=== PATIENT | male | born 1935 | race Caucasian/White ===

== ENCOUNTER 2017-08-17 13:49 | Inpatient (IN) | payer MEDICARE, OTHER ==
[~2017-08-17] VITALS: Ht 172.7 cm; Wt 75.9 kg
[~2017-08-17 13:49] MED LIST: BISO1TAB12 PO; CEFD300C37 PO; DILT60TA27 PO; DILT60TA30 PO; DOXA4TAB3 PO; FLUT1AER PO; HYDR-3240 PO; LORA10TA62 PO; LOVA20TA2 PO; METO25TA35 PO; METR500T PO; POTA20TA6 PO; RIVA20TA PO; VIT1TABL32 PO
[2017-08-17] MEDS ORDERED: NALOXONE 0.4 MG/ML, 1ML IVPush ONE (14:00)
[2017-08-17 14:07] LABS: HEMATOCRIT 48.1 % (39.2-51.8); HEMOGLOBIN 16.2 g/dL (13.7-18.0); WHITE BLOOD COUNT 8.5 x10^3/uL (3.4-10)
[2017-08-17] MEDS ORDERED: DILTIAZEM 5 MG/ML, 5ML ONE ×2 (14:18→17:13)
[2017-08-17] MEDS ORDERED: PLEASE ENTER HEIGHT AND WEIGHT MC SCH (14:30)
[2017-08-17] MEDS ORDERED: DILTIAZEM 5 MG/ML, 5ML IV ONE (14:30)
[2017-08-17] MEDS ORDERED: OMNIPAQUE 350 MG/ML, 150 ML BOTTLE ONE (14:56)
[2017-08-17] MEDS ORDERED: OMNIPAQUE 350 MG/ML, 100ML BOTTLE ONE (15:13)
[2017-08-17] MEDS ORDERED: SODIUM CHLORIDE FLUSH 10ML SYR IVF PRN (15:30)
[2017-08-17] MEDS ORDERED: METOPROLOL 1 MG/ML, 5ML ONE ×3 (15:42→16:49)
[2017-08-17] MEDS: METOPROLOL 1 MG/ML, 5ML IVPush PRN ×2 (15:43→17:00)
[2017-08-17] MEDS ORDERED: METOPROLOL 1 MG/ML, 5ML IVPush STA (16:10)
[2017-08-17] MEDS ORDERED: LORazepam 2 MG/ML, 1ML ONE (16:36)
[2017-08-17] MEDS ORDERED: LORazepam 2 MG/ML, 1ML IVPush ONE ×2 (17:00→17:30)
[2017-08-17] MEDS ORDERED: ENALAPRILAT 1.25 MG/ML, 2ML IVPush PRN (17:00)
[2017-08-17] MEDS ORDERED: ENALAPRILAT 1.25 MG/ML, 2ML ONE (17:18)
[2017-08-17] MEDS ORDERED: ZIPRASIDONE 20 MG INJ IM ONE ×2 (17:19→17:30)
[2017-08-17] MEDS ORDERED: HYDROmorphone 2 MG/ML, 1ML ONE (18:52)
[2017-08-17] MEDS ORDERED: morphine SULFATE/PF 0.5 MG/ML, 10ML IV PRN (19:00)
[2017-08-17] MEDS ORDERED: DILTIAZEM 125 MG in SODIUM CHLORIDE 0.9% 100 ML IV PRN (19:00)
[2017-08-17] MEDS ORDERED: HYDROmorphone 1 MG/ML, 1ML IVPush PRN (19:00)
[2017-08-17] MEDS ORDERED: NALOXONE 0.4 MG/ML, 1ML ONE (19:44)
[2017-08-17 20:26] VITALS: BP 171/131
[2017-08-17 22:11] LABS: HEMATOCRIT 50.6 % (39.2-51.8); HEMOGLOBIN 16.7 g/dL (13.7-18.0); WHITE BLOOD COUNT 9.6 x10^3/uL (3.4-10)
[2017-08-17 22:22] LABS: BLOOD UREA NITROGEN 14 mg/dL (7-18)
[2017-08-17] MEDS: POTASSIUM CHLORIDE 20 MEQ TAB.ER.PRT PO SCH (22:49)
[2017-08-17 23:30] VITALS: BP 54/37
[2017-08-17 23:45] VITALS: BP 69/47
[2017-08-18] MEDS ORDERED: SODIUM CHLORIDE 0.9%, 500ML IVBOLUS ONE
[2017-08-18 00:35] VITALS: BP 121/64
[2017-08-18 00:48] VITALS: BP 125/61
[2017-08-18 05:42] LABS: HEMATOCRIT 45.5 % (39.2-51.8); HEMOGLOBIN 15.4 g/dL (13.7-18.0); WHITE BLOOD COUNT 11.2 x10^3/uL (3.4-10)
[2017-08-18] MEDS: LORazepam 2 MG/ML, 1ML IVPush PRN ×3 (06:07→21:19)
[2017-08-18 06:19] LABS: ASPARTATE AMINO TRANSFERASE 22 U/L (15-37); BLOOD UREA NITROGEN 17 mg/dL (7-18)
[2017-08-18] MEDS: MORPHINE SULFATE 4 MG/ML, 1ML IV PRN ×2 (06:24→11:11)
[2017-08-18 07:00] VITALS: BP 95/60
[2017-08-18] MEDS ORDERED: LORazepam 2 MG/ML, 1ML IVPush ONE (08:50)
[2017-08-18] MEDS ORDERED: LORazepam 2 MG/ML, 1ML IVPush PRN (09:00)
[2017-08-18] MEDS: POTASSIUM CHLORIDE 20 MEQ TAB.ER.PRT PO SCH ×3 (09:00→21:00)
[2017-08-18] MEDS ORDERED: RIVAROXABAN 20 MG TABLET PO SCH (09:00)
[2017-08-18] MEDS ORDERED: DIGOXIN 0.25 MG/ML, 2ML IVPush ONE ×2 (10:00→12:00)
[2017-08-18] MEDS ORDERED: GADOBUTROL 7.5 MMOL/7.5 ML VIAL ONE (11:59)
[2017-08-18] MEDS: LEVETIRACETAM 500 MG in SODIUM CHLORIDE 0.9% 100 ML IV SCH ×2 (13:07→22:19)
[2017-08-18 13:09] VITALS: BP 168/94
[2017-08-18 15:51] LABS: DAU SCREEN DISCLAIMER
[2017-08-18] MEDS ORDERED: DIGOXIN 0.25 MG/ML, 2ML ONE (16:15)
[2017-08-18] MEDS: LOVASTATIN 20 MG TABLET PO SCH (21:00)
[2017-08-18] MEDS ORDERED: hydrALAzine 20 MG/ML, 1ML ONE (22:43)
[2017-08-18 22:45] VITALS: BP 201/108
[2017-08-18] MEDS: hydrALAzine 20 MG/ML, 1ML IV PRN (22:46)
[2017-08-19] MEDS: MORPHINE SULFATE 4 MG/ML, 1ML IV PRN (00:47)
[2017-08-19 02:27] VITALS: BP 111/64
[2017-08-19] MEDS: LORazepam 2 MG/ML, 1ML IVPush PRN (03:10)
[2017-08-19 05:14] LABS: HEMATOCRIT 49.4 % (39.2-51.8); HEMOGLOBIN 16.3 g/dL (13.7-18.0); WHITE BLOOD COUNT 16.4 x10^3/uL (3.4-10)
[2017-08-19 05:25] LABS: BLOOD UREA NITROGEN 23 mg/dL (7-18)
[2017-08-19] MEDS ORDERED: ASPIRIN 325 MG TABLET PO SCH (06:00)
[2017-08-19 07:00] VITALS: BP 183/82
[2017-08-19] MEDS ORDERED: SODIUM CHLORIDE 0.9% 100 ML IV SCH (07:00)
[2017-08-19] MEDS ORDERED: DIGOXIN 0.25 MG/ML, 2ML IVPush SCH (09:00)
[2017-08-19] MEDS: POTASSIUM CHLORIDE 20 MEQ TAB.ER.PRT PO SCH ×3 (09:04→22:17)
[2017-08-19] MEDS: hydrALAzine 20 MG/ML, 1ML IV PRN (09:16)
[2017-08-19] MEDS: LEVETIRACETAM 500 MG in SODIUM CHLORIDE 0.9% 100 ML IV SCH ×2 (09:17→22:15)
[2017-08-19 09:55] LABS: BLOOD UREA NITROGEN 22 mg/dL (7-18)
[2017-08-19 09:58] LABS: ASPARTATE AMINO TRANSFERASE 35 U/L (15-37)
[2017-08-19] MEDS: NS + 20MEQ KCL 1,000 ML IV SCH (10:15)
[2017-08-19] MEDS ORDERED: DILTIAZEM 30 MG TABLET PO SCH (11:30)
[2017-08-19] MEDS ORDERED: VANCOMYCIN PER PHARMACY MC PRN (14:00)
[2017-08-19] MEDS ORDERED: PHARMACOKINETIC MONITORING MC PRN (14:30)
[2017-08-19] MEDS ORDERED: PHARMACOKINETIC CONSULTATION MC ONE (14:30)
[2017-08-19] MEDS: PIPERACILLIN/TAZO/PMX 3.375GM 50 ML IV SCH ×2 (14:49→20:04)
[2017-08-19 14:55] VITALS: BP 175/81
[2017-08-19] MEDS: VANCOMYCIN 1,500 MG in SODIUM CHLORIDE 0.9% 250 ML IV SCH (15:29)
[2017-08-19] MEDS: ENALAPRILAT 1.25 MG/ML, 2ML IV SCH ×2 (17:32→22:16)
[2017-08-19] MEDS ORDERED: hydrALAzine 20 MG/ML, 1ML IV PRN (19:00)
[2017-08-19 19:03] VITALS: BP 177/77
[2017-08-19] MEDS: LOVASTATIN 20 MG TABLET PO SCH (21:00)
[2017-08-20] VITALS (8 sets, daily range): BP systolic 138–189; BP diastolic 66–92
[2017-08-20] MEDS: PIPERACILLIN/TAZO 3.375 GM in SODIUM CHLORIDE 0.9% 50 ML IV SCH ×4 (02:09→19:48)
[2017-08-20] MEDS: NS + 20MEQ KCL 1,000 ML IV SCH ×2 (02:46→14:56)
[2017-08-20 05:35] LABS: BLOOD UREA NITROGEN 34 mg/dL (7-18)
[2017-08-20] MEDS ORDERED: VANCOMYCIN PER PHARMACY MC PRN (07:00)
[2017-08-20 07:55] LABS: HEMATOCRIT 44.5 % (39.2-51.8); HEMOGLOBIN 14.9 g/dL (13.7-18.0)
[2017-08-20] MEDS ORDERED: DIGOXIN 0.25 MG/ML, 2ML ONE (07:56)
[2017-08-20] MEDS: POTASSIUM CHLORIDE 20 MEQ TAB.ER.PRT PO SCH (08:02)
[2017-08-20] MEDS: ENALAPRILAT 1.25 MG/ML, 2ML IV SCH ×2 (08:10→21:48)
[2017-08-20] MEDS: DIGOXIN 0.25 MG/ML, 2ML IVPush SCH (08:10)
[2017-08-20] MEDS: LEVETIRACETAM 500 MG in SODIUM CHLORIDE 0.9% 100 ML IV SCH ×2 (08:50→21:47)
[2017-08-20] MEDS: hydrALAzine 20 MG/ML, 1ML IV PRN ×2 (12:46→17:40)
[2017-08-20] MEDS: DILTIAZEM 30 MG TABLET PO SCH ×3 (12:47→21:47)
[2017-08-20] MEDS ORDERED: RIVAROXABAN 20 MG TABLET PO SCH (17:00)
[2017-08-20] MEDS: METOPROLOL TARTRATE 25 MG TABLET PO SCH (17:40)
[2017-08-20] MEDS: RIVAROXABAN 15 MG TABLET PO SCH (17:40)
[2017-08-20] MEDS: LOVASTATIN 20 MG TABLET PO SCH (21:00)
[2017-08-21] VITALS (12 sets, daily range): BP systolic 129–165; BP diastolic 54–94
[2017-08-21 00:06] LABS: IS PT STATUS REG ER OR PRE ER? NO
[2017-08-21] MEDS: hydrALAzine 20 MG/ML, 1ML IV PRN ×3 (00:29→16:39)
[2017-08-21] MEDS: PIPERACILLIN/TAZO 3.375 GM in SODIUM CHLORIDE 0.9% 50 ML IV SCH ×4 (02:16→21:24)
[2017-08-21] MEDS: VANCOMYCIN 1,500 MG in SODIUM CHLORIDE 0.9% 250 ML IV SCH (03:04)
[2017-08-21] MEDS: NS + 20MEQ KCL 1,000 ML IV SCH ×2 (05:22→15:53)
[2017-08-21] MEDS: METOPROLOL TARTRATE 25 MG TABLET PO SCH ×2 (05:24→19:08)
[2017-08-21 05:49] LABS: IS PT STATUS REG ER OR PRE ER? NO
[2017-08-21] MEDS: DIGOXIN 0.25 MG/ML, 2ML IVPush SCH (09:39)
[2017-08-21] MEDS: DILTIAZEM 30 MG TABLET PO SCH ×3 (09:39→21:26)
[2017-08-21] MEDS: ENALAPRILAT 1.25 MG/ML, 2ML IV SCH ×2 (09:39→21:26)
[2017-08-21] MEDS: LEVETIRACETAM 500 MG in SODIUM CHLORIDE 0.9% 100 ML IV SCH ×2 (11:38→22:52)
[2017-08-21] MEDS: RIVAROXABAN 15 MG TABLET PO SCH (16:39)
[2017-08-21] MEDS: LOVASTATIN 20 MG TABLET PO SCH (21:25)
[2017-08-22] VITALS (9 sets, daily range): BP systolic 95–171; BP diastolic 56–82
[2017-08-22] MEDS: hydrALAzine 20 MG/ML, 1ML IV PRN (01:30)
[2017-08-22] MEDS: PIPERACILLIN/TAZO 3.375 GM in SODIUM CHLORIDE 0.9% 50 ML IV SCH ×4 (02:00→15:48)
[2017-08-22] MEDS: METOPROLOL TARTRATE 25 MG TABLET PO SCH ×2 (06:26→17:22)
[2017-08-22] MEDS: NS + 20MEQ KCL 1,000 ML IV SCH (10:26)
[2017-08-22] MEDS: DILTIAZEM 30 MG TABLET PO SCH ×3 (10:26→21:50)
[2017-08-22] MEDS: DIGOXIN 0.25 MG/ML, 2ML IVPush SCH (10:27)
[2017-08-22] MEDS: ENALAPRILAT 1.25 MG/ML, 2ML IV SCH (10:30)
[2017-08-22] MEDS: LEVETIRACETAM 500 MG in SODIUM CHLORIDE 0.9% 100 ML IV SCH ×2 (11:44→22:02)
[2017-08-22] MEDS: VANCOMYCIN 1,500 MG in SODIUM CHLORIDE 0.9% 250 ML IV SCH (15:48)
[2017-08-22] MEDS ORDERED: RIVAROXABAN 20 MG TABLET PO SCH (16:30)
[2017-08-22] MEDS: RIVAROXABAN 20 MG TABLET PO SCH (17:22)
[2017-08-22] MEDS: AMPICILLIN 250 MG/5 ML PO SCH ×2 (19:13→21:51)
[2017-08-22] MEDS: LOVASTATIN 20 MG TABLET PO SCH (21:00)
[2017-08-23] VITALS: BP 121/70
[2017-08-23 04:00] VITALS: BP 155/75
[2017-08-23] MEDS: hydrALAzine 20 MG/ML, 1ML IV PRN (04:31)
[2017-08-23 04:45] VITALS: BP 127/56
[2017-08-23 06:14] LABS: BLOOD UREA NITROGEN 25 mg/dL (7-18)
[2017-08-23] MEDS: AMPICILLIN 250 MG/5 ML PO SCH ×3 (06:36→18:36)
[2017-08-23] MEDS: METOPROLOL TARTRATE 25 MG TABLET PO SCH ×2 (06:36→18:36)
[2017-08-23 07:40] VITALS: BP 133/69
[2017-08-23] MEDS ORDERED: MAGNESIUM SULFATE PMX 2GM/50ML 50 ML IV ONE (09:00)
[2017-08-23] MEDS: DILTIAZEM 30 MG TABLET PO SCH ×2 (09:00→16:00)
[2017-08-23] MEDS: DILTIAZEM 60 MG TABLET PO SCH ×2 (09:03→18:36)
[2017-08-23] MEDS: POTASSIUM CHLORIDE 20 MEQ TAB.ER.PRT PO SCH ×2 (09:04→18:36)
[2017-08-23] MEDS: LEVETIRACETAM 500 MG in SODIUM CHLORIDE 0.9% 100 ML IV SCH (09:05)
[2017-08-23] MEDS ORDERED: LEVE500T53 PO (11:37)
[2017-08-23] MEDS ORDERED: AMPICILLIN PO (11:37)
[2017-08-23] MEDS ORDERED: DILT120T4 PO (11:37)
[2017-08-23] MEDS ORDERED: TAMSULOSIN 0.4 MG CAP.ER.24H PO ONE (16:00)
[2017-08-23] MEDS: RIVAROXABAN 20 MG TABLET PO SCH (18:36)
[2017-08-23 19:50] VITALS: BP 120/50
[2017-08-23] MEDS ORDERED: LEVETIRACETAM 500 MG TABLET PO SCH (21:00)
[2017-08-27] MEDS ORDERED: TAMS-11 PO (08:04)
== END 2017-08-23 21:08 | disposition home health service (06) | DRG 100 ==
LOC: ED 14:44 → EDIP 15:29 → 5SO 20:02 → 4WST 08-18 17:00
PROVIDERS: ADMIT Hospitalist; ATTEND Hospitalist
PROC: 4B02XSZ Measurement of Cardiac Pacemaker, External Approach (ICD-10-PCS; principal; 2017-08-17)
PROC: 0T9B70Z Drainage of Bladder with Drainage Device, Via Natural or Artificial Opening (ICD-10-PCS; 2017-08-19)
DX: G40.209 Localization-related (focal) (partial) symptomatic epilepsy and epileptic syndromes with complex partial seizures, not intractable, without status epilepticus (principal); E43 Unspecified severe protein-calorie malnutrition; N17.9 Acute kidney failure, unspecified; I67.4 Hypertensive encephalopathy; R78.81 Bacteremia; D68.69 Other thrombophilia; I48.2 Chronic atrial fibrillation; B95.7 Other staphylococcus as the cause of diseases classified elsewhere; F11.20 Opioid dependence, uncomplicated; R17 Unspecified jaundice; N39.0 Urinary tract infection, site not specified; I49.5 Sick sinus syndrome; J43.9 Emphysema, unspecified; I71.4 Abdominal aortic aneurysm, without rupture; I73.9 Peripheral vascular disease, unspecified; N28.1 Cyst of kidney, acquired; I13.10 Hypertensive heart and chronic kidney disease without heart failure, with stage 1 through stage 4 chronic kidney disease, or unspecified chronic kidney disease; Z66 Do not resuscitate; I16.0 Hypertensive urgency; E78.5 Hyperlipidemia, unspecified; G89.29 Other chronic pain; M54.9 Dorsalgia, unspecified; E86.0 Dehydration; G31.9 Degenerative disease of nervous system, unspecified; G83.84 Todd's paralysis (postepileptic); H54.61 Unqualified visual loss, right eye, normal vision left eye; I25.10 Atherosclerotic heart disease of native coronary artery without angina pectoris; N18.2 Chronic kidney disease, stage 2 (mild); B95.2 Enterococcus as the cause of diseases classified elsewhere; Z68.25 Body mass index [BMI] 25.0-25.9, adult; I25.2 Old myocardial infarction; I69.320 Aphasia following cerebral infarction; Z95.0 Presence of cardiac pacemaker; Z79.01 Long term (current) use of anticoagulants; Z79.82 Long term (current) use of aspirin; Z79.899 Other long term (current) drug therapy; Z87.891 Personal history of nicotine dependence; Z95.5 Presence of coronary angioplasty implant and graft; Z99.81 Dependence on supplemental oxygen
CPT/HCPCS: 0042T; 36415; 70450; 70496; 70498; 70553; 71010; 76700; 80047; 80048; 80053; 80202; 80307; 81001; 82040; 82140; 82565; 82962; 83735; 84100; 84145; 84484; 84520; 85025; 85610; 85730; 87040; 87077; 87086; 87186; 93005; 93306; 94640; 95819; 96372; 96374; 96375; A9585; J1170; J1953; J2310; J2543; J3370; J3480; J3486; Q9967; G0479; J0360; J1160; J2060; J3475; J7040; J7050